=== PATIENT | male | born 1955 | race Caucasian/White ===

== ENCOUNTER 2021-03-03 15:02 | Outpatient (CLI) | payer MEDICARE, OTHER | END 2021-03-03 15:03 | disposition home or self-care (01) | LOC: BICRAD 15:02 | PROVIDERS: ATTEND Family Medicine | DX: M25.551 Pain in right hip (principal) ==

== ENCOUNTER 2023-05-30 08:07 | Outpatient (CLI) | payer MEDICARE, OTHER | END 2023-05-30 08:08 | disposition home or self-care (01) | LOC: BICMAMMO 08:07 | PROVIDERS: ATTEND Family Medicine | DX: Z13.820 Encounter for screening for osteoporosis (principal); Z79.52 Long term (current) use of systemic steroids; M85.89 Other specified disorders of bone density and structure, multiple sites | CPT/HCPCS: 77080 ==

== ENCOUNTER 2024-11-12 10:04 | Outpatient (CLI) | payer MEDICARE, OTHER | END 2024-11-12 10:05 | disposition home or self-care (01) | LOC: BICRAD 10:04 | PROVIDERS: ATTEND Family Medicine | DX: R22.0 Localized swelling, mass and lump, head (principal) | CPT/HCPCS: 70150 ==

== ENCOUNTER 2025-08-09 07:31 | Outpatient (CLI) | payer MEDICARE, OTHER | END 2025-08-09 07:32 | disposition home or self-care (01) | LOC: ULT 07:31 | PROVIDERS: ATTEND Internal Medicine Rheumatology | DX: R79.89 Other specified abnormal findings of blood chemistry (principal); R93.2 Abnormal findings on diagnostic imaging of liver and biliary tract | CPT/HCPCS: 76705 ==

== ENCOUNTER 2025-08-17 13:18 | Outpatient (CLI) | payer MEDICARE, OTHER ==
[~2025-08-17 13:18] MED LIST: Iopamidol 370 76% 100 ML VIAL ONE
[2025-08-17 13:56] LABS: Estimated GFR - POC 54.0
== END 2025-08-17 13:19 | disposition home or self-care (01) ==
LOC: CT 13:18
PROVIDERS: ATTEND Internal Medicine Rheumatology
DX: R93.2 Abnormal findings on diagnostic imaging of liver and biliary tract (principal); R79.89 Other specified abnormal findings of blood chemistry; D18.03 Hemangioma of intra-abdominal structures; K76.89 Other specified diseases of liver
CPT/HCPCS: 36415; 74170; 82565; Q9967